=== PATIENT | female | born 1995 | race Caucasian/White ===

== ENCOUNTER 2016-09-03 09:48 | Outpatient (CLI) | payer MEDICAID ==
[~2016-09-03] VITALS: Ht 162.6 cm; Wt 63.0 kg
[2016-09-03 09:58] VITALS: Ht 162.6 cm; Wt 63.0 kg
[2016-09-03 10:09] VITALS: BP 116/70
[2016-09-03] MEDS ORDERED: ONDANSETRON 4 MG INJ IV PRN (11:00)
[2016-09-03] MEDS ORDERED: LACTATED RINGER'S 1,000 ML IV SCH (11:00)
[2016-09-03 11:27] LABS: ADD SCAN DIFF NO
[2016-09-03 11:30] LABS: ABNORMAL IP MESSAGE 1; BASOPHILS % 0.3 % (0.0-2.0); EOSINOPHILS % 0.1 % (0.0-7.0); HEMOGLOBIN 12.5 g/dl (12.0-16.0); RED CELL DISTRIBUTION WIDTH 13.2 % (11.5-14.5)
[2016-09-03 11:34] LABS: HEMATOCRIT 35.6 % (37.0-47.0); LYMPHOCYTES # 0.8 10^3/ul (0.8-2.9); LYMPHOCYTES % 6.3 % (18.0-55.0); MEAN CORPUSCULAR HEMOGLOBIN 31.5 pg (29.0-33.0); MEAN CORPUSCULAR HGB CONC 35.1 g/dl (32.0-37.0); MEAN CORPUSCULAR VOLUME 89.7 fl (72.0-104.0); MEAN PLATELET VOLUME 14.1 fl (7.4-10.4); MONOCYTE # 0.5 10^3/ul (0.3-0.9); MONOCYTES % 3.9 % (0.0-13.0); NEUTROPHIL # 11.8 10^3/ul (1.6-7.5); NEUTROPHILS % 88.6 % (30.0-74.0); PLATELET COUNT 120 10^3/UL (140-415); RED BLOOD COUNT 3.97 10^6/ul (4.20-5.40); WHITE BLOOD COUNT 13.3 10^3/ul (4.8-10.8)
[2016-09-03 11:48] LABS: ALBUMIN 4.3 g/dl (3.3-4.9); ALBUMIN/GLOBULIN RATIO 1.53; BILIRUBIN,INDIRECT 0.3 mg/dl (0-1.1); BILIRUBIN,TOTAL 0.3 mg/dl (0.2-1.3); CALCIUM 9.2 mg/dl (8.4-10.2); CREATININE 0.45 mg/dl (0.44-1.00); POTASSIUM 4.2 mmol/L (3.5-5.1); TOTAL PROTEIN 7.1 g/dl (6.1-8.1)
[2016-09-03 12:13] LABS: ADD UMIC YES; URINE BILIRUBIN (Dip) NEGATIVE (NEGATIVE); URINE BLOOD (Dip) NEGATIVE (NEGATIVE); URINE COLOR LT. YELLOW (YELLOW); URINE GLUCOSE (Dip) NEGATIVE (NEGATIVE); URINE KETONES (Dip) NEGATIVE (NEGATIVE); URINE LEUKOCYTE ESTERASE (Dip) 1+ (NEGATIVE); URINE NITRITE (Dip) NEGATIVE (NEGATIVE); URINE TOTAL PROTEIN (Dip) NEGATIVE (NEGATIVE); URINE UROBILINOGEN (Dip) 0.2 E.U./dL (0.1-1.0)
--- NOTE | 2016-09-03 12:27 | QN ---
Documentation Comment 20 years old 21 weeks and 3 days with EDC January 11, 2017, presented herself to triage unit with chief complaint of nausea and 3 occasions of vomiting as of yesterday, on appearance she looks slightly pale and dehydrated requires hydration with antinausea medication, her CMP is within normal as well as her CBC, urine results for ketones and acetone not available . She may be discharged home after hydration and relief from nausea, instruction for diet and hydration given, advised follow-up at the clinic in 3-4 day Laboratory Tests Test 09/03/16 11:08 White Blood Count 13.310^3/ul Red Blood Count 3.9710^6/ul Hemoglobin 12.5g/dl Hematocrit 35.6% Mean Corpuscular Volume 89.7fl Mean Corpuscular Hemoglobin 31.5pg Mean Corpuscular Hemoglobin Concent 35.1g/dl Red Cell Distribution Width 13.2% Platelet Count 04557^3/UL Mean Platelet Volume 14.1fl Neutrophils % 88.6% Lymphocytes % 6.3% Monocytes % 3.9% Eosinophils % 0.1% Basophils % 0.3% Nucleated Red Blood Cells % 0.0/100WBC Neutrophils # 11.810^3/ul Lymphocytes # 0.810^3/ul Monocytes # 0.510^3/ul Eosinophils # 0.010^3/ul Basophils # 0.010^3/ul Nucleated Red Blood Cells # 0.010^3/ul Sodium Level 140mmol/L Potassium Level 4.2mmol/L Chloride Level 107mmol/L Carbon Dioxide Level 23mmol/L Anion Gap 14 Blood Urea Nitrogen 8mg/dl Creatinine 0.45mg/dl Glucose Level 77mg/dl Calcium Level 9.2mg/dl Total Bilirubin 0.3mg/dl Direct Bilirubin 0.00mg/dl Indirect Bilirubin 0.3mg/dl Aspartate Amino Transf (AST/SGOT) 22IU/L Alanine Aminotransferase (ALT/SGPT) 31IU/L Alkaline Phosphatase 62IU/L Total Protein 7.1g/dl Albumin 4.3g/dl Globulin 2.80g/dl Albumin/Globulin Ratio 1.53 Current Medications Medications (Trade) Dose Ordered Sig/Bryan Route PRN Reason Start Time Stop Time Status Last Admin Dose Admin Ondansetron HCl 4 mg 4 mg Q6H PRN IV NAUSEA AND/OR VOMITING 09/03/16 11:00 09/03/16 11:26 Lactated Ringer's (Lr) 1,000 ml @ 200 mls/hr Q5H IV 09/03/16 11:00 09/03/16 11:11 ZORAIDA PARRA MD Sep 03, 2016 12:18
[2016-09-03 12:32] LABS: MUCUS,URINE FEW; SQUAMOUS EPITHELIAL CELL,UR FEW; URINE RBCS NONE SEEN /HPF (0)
--- NOTE | 2016-09-03 15:14 | TRIAGE ---
OB Triage Datetime Report Generated by CPN: 09/03/2016 15:13 Datetime: 09/03/2016 14:31 Labor Evaluation Frequency: X3 Duration (sec)2399: 30-40 Quality: Mild Pattern: Normal: <= 5 Contractions in 10 Minutes Resting Tone [place]: Relaxed Pain Assessment Pain Scale: 2 Pain Presence: Intermittent Pain Type: Ache Pain Location: Abdomen Pain Goal: 0 Datetime: 09/03/2016 13:31 Labor Evaluation Frequency: X2 Monitor Mode: External Duration (sec)2399: 30-40 Quality: Mild Pattern: Normal: <= 5 Contractions in 10 Minutes Resting Tone [place]: Relaxed Datetime: 09/03/2016 13:01 Labor Evaluation Frequency: X2 Monitor Mode: External Duration (sec)2399: 60 Quality: Mild Pattern: Normal: <= 5 Contractions in 10 Minutes Resting Tone [place]: Relaxed Pain Assessment Pain Scale: 4 Pain Presence: Constant Pain Type: Ache Pain Location: Abdomen Pain Goal: 0 Pain Relief Measures: Comfort Measures Datetime: 09/03/2016 12:31 Labor Evaluation Frequency: X2 Monitor Mode: External Duration (sec)2399: 30-60 Quality: Mild Pattern: Normal: <= 5 Contractions in 10 Minutes Resting Tone [place]: Relaxed Pain Assessment Pain Scale: 4 Pain Presence: Constant Pain Type: Ache Pain Location: Abdomen Pain Goal: 0 Pain Relief Measures: Comfort Measures Datetime: 09/03/2016 12:01 Labor Evaluation Frequency: X3 Monitor Mode: External Duration (sec)2399: 30-40 Quality: Mild Pattern: Normal: <= 5 Contractions in 10 Minutes Resting Tone [place]: Relaxed Pain Assessment Pain Scale: 5 Pain Presence: Constant Pain Type: Ache Pain Location: Back Pain Goal: 0 Pain Relief Measures: Comfort Measures Datetime: 09/03/2016 11:30 Labor Evaluation Frequency: 2-10 Monitor Mode: External Duration (sec)2399: 30-60 Quality: Mild Pattern: Normal: <= 5 Contractions in 10 Minutes Resting Tone [place]: Relaxed Pain Assessment Pain Scale: 7 Pain Presence: Constant Pain Type: Ache Pain Location: Abdomen Pain Goal: 0 Pain Relief Measures: Comfort Measures Vaginal Exam Membrane Status: Intact Datetime: 09/03/2016 11:00 Labor Evaluation Frequency: X3 Monitor Mode: External Duration (sec)2399: 40 Quality: Mild Pattern: Normal: <= 5 Contractions in 10 Minutes Resting Tone [place]: Relaxed Pain Assessment Pain Scale: 9 Pain Presence: Constant Pain Type: Ache Pain Location: Abdomen Pain Goal: 2 Vaginal Exam Membrane Status: Intact Datetime: 09/03/2016 10:15 EGA: 21.3 Datetime: 09/03/2016 10:05 Time of Arrival: 09/03/2016 09:45 Arrived By: Wheelchair Arrived From: Home Chief Complaint: NAUSEA/VOMITTING/DIARRHEA Movement: Present Rupture of Membranes: Denies Vaginal Bleeding: None Vaginal Discharge: Denies Recent Sexual Intercouse: Denies Abdominal Trauma: Not Applicable Patient Complaints: Nausea; Vomiting Time Provider Notified: 09/03/2016 10:53 Provider Notified: DR. PARRA Initial Plan: TOCO. UA Datetime: 09/03/2016 10:04 Monitor Mode: External Heart Rate FHR Baseline Rate: 148 Monitor Mode: Auscultation/Fetoscope Pain Assessment Pain Scale: 9 Pain Presence: Constant Pain Type: Ache Pain Location: Abdomen Pain Goal: 0 Vaginal Exam Membrane Status: Intact Datetime: 09/03/2016 10:00 Assessment Type: Triage Maternal Assessment Level of Consciousness: Fully Conscious DTR's/Clonus: DTRs 2+; No Clonus Headache: Denies Blurred Vision: No Respiratory Effort: Unlabored; Regular Rhythm; Equal Expansion Breath Sounds, Left: Clear and Equal Breath Sounds, Right: Clear and Equal Nausea/Vomiting: Denies RUQ Epigastric Pain: Denies Lower Extremities Edema: None Degree: None Upper Extremities Edema: None Degree: None Facial Edema: None Fall Risk Assessment History of Falling: (0) No Secondary Diagnosis: (0) No Ambulatory Aid: (0) Bedrest/Nurse Assist IV Therapy: (0) No Gait: (0) Normal/Bedrest/Immobile Mental Status: (0) Oriented to Own Ability Fall Score: 0 Fall Risk Score Definition: No Risk: No action required
== END 2016-09-03 15:05 | disposition home or self-care (01) ==
LOC: OBT 09:48 → L-D 09:49 → OBT 15:05
PROVIDERS: ATTEND Obstetrics & Gynecology
DX: O21.2 Late vomiting of pregnancy (principal); E86.0 Dehydration; Z3A.21 21 weeks gestation of pregnancy
CPT/HCPCS: 80053; 81001; 85025; J2405; J7120

== ENCOUNTER 2016-12-26 01:15 | Outpatient (CLI) | payer MEDICAID ==
[~2016-12-26] VITALS: Ht 162.6 cm; Wt 70.1 kg
[2016-12-26 03:20] VITALS: Ht 162.6 cm; Wt 70.1 kg
[2016-12-26 03:21] VITALS: BP 120/85; PULSE 78; RESP 18
--- NOTE | 2016-12-26 03:21 | RADRPT ---
PROCEDURE: Limited OB ultrasound CLINICAL INDICATION: Leaking. Evaluate fluid volume. TECHNIQUE: Sonographic evaluation to assess the amniotic fluid volume was performed. Transabdomin al imaging of the gravid uterus was performed. COMPARISON: OB ultrasound dated 12/18/2016 FINDINGS: Single live intrauterine with cardiac activity is identified. The heart rate i s 129 beats per minute. The fetus in a cephalic presentation. The placenta is posterior, grade 1. T he amniotic -fluid volume equals approximately 10.5 cm, within normal limits. Previously, the amnio tic fluid volume measured 12.1 cm. IMPRESSION: 1. Amniotic fluid volume equals 10.5 cm. RPTAT: HCNS Physician Rosendo Date Time Electronically viewed and signed by Physician Rosendo on 12/26/2016 03:21 CS/
--- NOTE | 2016-12-26 04:00 | TRIAGE ---
OB Triage Datetime Report Generated by CPN: 12/26/2016 03:59 Datetime: 12/26/2016 03:30 Stage of : OB Triage Datetime: 12/26/2016 03:28 Stage of : OB Triage Labor Evaluation Frequency: 3-7 Monitor Mode: External Duration (sec)2399: 60-80 Quality: Mild Pattern: Normal: <= 5 Contractions in 10 Minutes Resting Tone [place]: Relaxed Contraction Comments: toco removed Heart Rate FHR Baseline Rate: 135 Monitor Mode: External US Variability: Moderate 6-25 bpm Accelerations: 15X15 Decelerations: None Comments: us removed Pain Assessment Pain Scale: 0 Pain Presence: None/Denies Pain Type: N/A Pain Goal: 3 Datetime: 12/26/2016 02:30 Stage of : OB Triage Labor Evaluation Frequency: 6-7 Monitor Mode: External Duration (sec)2399: 60-80 Quality: Mild Pattern: Normal: <= 5 Contractions in 10 Minutes Resting Tone [place]: Relaxed Contraction Comments: PT DENIES FEELING UC'S Heart Rate FHR Baseline Rate: 135 Monitor Mode: External US Variability: Moderate 6-25 bpm Accelerations: 15X15 Decelerations: None Pain Assessment Pain Scale: 0 Pain Presence: None/Denies Pain Type: N/A Pain Goal: 3 Pain Assessment Comments: PT ASLEEP Datetime: 12/26/2016 01:35 Stage of : OB Triage Datetime: 12/26/2016 01:34 Stage of : OB Triage Pain Assessment Pain Scale: 0 Pain Presence: None/Denies Pain Type: N/A Pain Goal: 3 Vaginal Exam Dilatation (cms): 1.0 Effacement (%): 70 Station: -2 Exam By: comfort felipe Datetime: 12/26/2016 01:31 Time of Arrival: 12/26/2016 01:05 EGA: 37.5 Arrived By: Wheelchair Arrived From: Home Chief Complaint: Leaking since a.m. one time Movement: Present Contractions: Denies/Absent Rupture of Membranes: Unsure Vaginal Bleeding: None Vaginal Discharge: Denies Recent Sexual Intercouse: Denies Abdominal Trauma: Not Applicable Patient Complaints: Other Time Provider Notified: 12/26/2016 01:39 Provider Notified: HADADIAN Initial Plan: EFM, INGRID Datetime: 12/26/2016 01:30 Stage of : OB Triage Assessment Type: Triage Maternal Assessment Level of Consciousness: Fully Conscious DTR's/Clonus: DTRs 2+; No Clonus Headache: Denies Blurred Vision: No Respiratory Effort: Unlabored; Regular Rhythm; Equal Expansion Breath Sounds, Left: Clear and Equal Breath Sounds, Right: Clear and Equal Nausea/Vomiting: Denies RUQ Epigastric Pain: Denies Lower Extremities Edema: None Degree: None Upper Extremities Edema: None Degree: None Facial Edema: None Fall Risk Assessment History of Falling: (0) No Secondary Diagnosis: (0) No Ambulatory Aid: (0) Bedrest/Nurse Assist IV Therapy: (0) No Gait: (0) Normal/Bedrest/Immobile Mental Status: (0) Oriented to Own Ability Fall Score: 0 Fall Risk Score Definition: No Risk: No action required Contraction Comments: TOCO APPLIED Comments: US APPLIED Datetime: 09/03/2016 10:15 EGA: 21.3 Datetime: 09/03/2016 10:00 Fall Score: 0 Fall Risk Score Definition: No Risk: No action required
--- NOTE | 2016-12-26 06:15 | PN ---
Triage Information Date/Time Reason for visit: SROM Weeks of Gestation 37 6/7 /Para 1 Diabetes: none Hypertention: none Additional information 21 Year-old G1 with SIUP at 37 6/7 wks presents with a chief complaint of possible LOF. She has been receiving her care with Dr. Ragsdale. She states good movement. She denies nausea, vomiting, shortness of breath, chest pain, and abdominal pain between contractions, headache, visual changes, vaginal bleeding. Objective Vital Signs Date Time Temp Pulse Resp B/P Pulse Ox O2 Delivery O2 Flow Rate FiO2 12/26/16 03:21 97.6 78 18 120/85 Room Air Heart Rate: 130's Contractions: None Exam General: Patient appears well, alert and oriented, NAD, appropriate mood and affect ABD: gravid, soft, non-tender. Back: No CVA tenderness (B/L) LE: No clubbing, cyanosis, edema, thigh or calf tenderness bilaterally FHT: 130 bpm , moderate variability with acceleration, no deceleration-category I Contractions: None Speculum exam: No vaginal bleeding or LOF seen Assessment/Plan 21 Year-old G1 with SIUP at 37 6/7 wks c/o possible LOF. Her exam was unremarkable, us performed nml INGRID seen . - FHR: No sign of metabolic acidosis- Category I - Continuous EFM, toco - Contractions: None. - INGRID: 10.7 - Symptoms and sign of labor, preeclampsia, kick count discussed with patient, she voiced understanding. All of her questions answered. - Patient was discharged home in stable condition with the appropriate discharge instructions provided. I would like patient to have close follow-up with her primary physician or outpatient clinic in 1-2 days or return to the ER for worsening symptoms or any other urgent concerns. JOSUE NIELSEN Dec 26, 2016 06:15
== END 2016-12-26 03:48 | disposition home or self-care (01) ==
LOC: OBT 01:15 → L-D 01:30 → OBT 03:48
PROVIDERS: ATTEND Obstetrics & Gynecology
DX: O26.893 Other specified pregnancy related conditions, third trimester (principal); Z3A.37 37 weeks gestation of pregnancy
CPT/HCPCS: 76815; Z7500; G0463

== ENCOUNTER 2017-01-01 01:18 | Inpatient (IN) | payer OTHER ==
[~2017-01-01] VITALS: Ht 162.6 cm; Wt 71.7 kg
[2017-01-01 01:40] VITALS: BP 141/89; PULSE 89; RESP 18; Ht 162.6 cm; Wt 71.7 kg
[2017-01-01] MEDS ORDERED: LACTATED RINGER'S 1,000 ML IV SCH (01:51)
[2017-01-01] MEDS ORDERED: OXYTOCIN 30 UNITS/LR 500 ML IV PRN ×2 (02:00→04:00)
[2017-01-01] MEDS ORDERED: MISOPROSTOL 200 MCG TAB PR PRN ×2 (02:00→04:00)
[2017-01-01] MEDS ORDERED: OXYTOCIN 30 UNITS/LR 500 ML IV SCH ×2 (02:00)
[2017-01-01] MEDS ORDERED: BUTORPHANOL 2 MG INJ IV PRN (02:00)
[2017-01-01] MEDS ORDERED: LIDOCAINE 1% (MPF) 30 ML INJ INJ PRN (02:00)
[2017-01-01] MEDS ORDERED: CARBOPROST 250 MCG INJ IM PRN ×2 (02:00→04:00)
[2017-01-01] MEDS ORDERED: METHYLERGONOVINE 0.2 MG INJ IM PRN ×2 (02:00→04:00)
[2017-01-01] MEDS ORDERED: BUTORPHANOL 2 MG INJ ONE (02:16)
--- NOTE | 2017-01-01 02:21 | TRIAGE ---
OB Triage Datetime Report Generated by CPN: 01/01/2017 02:21 Datetime: 01/01/2017 02:07 Vaginal Exam Dilatation (cms): 6.0 Effacement (%): 80 Station: -2 Exam By: unique BLAKE Membrane Status: Ruptured Membranes Rupture Method: Spontaneous Amniotic Fluid Color: Clear Amniotic Fluid Amount: Small Amniotic Fluid Odor: Normal Datetime: 01/01/2017 01:43 Time of Arrival: 01/01/2017 01:17 EGA: 38.4 Arrived By: Wheelchair Arrived From: Home Chief Complaint: PT C/O ABDOMEN PAIN Movement: Present Contractions: Regular Time Contractions Began: 01/01/2017 01:00 Rupture of Membranes: Denies Vaginal Bleeding: None Vaginal Discharge: Denies Recent Sexual Intercouse: Denies Abdominal Trauma: Not Applicable Patient Complaints: Contractions Time Provider Notified: 01/01/2017 01:47 Provider Notified: DR ENCISO Initial Plan: PHYSICAL EXAM, TOCO AND EFM, NOTIFY MD Datetime: 01/01/2017 01:25 Stage of : Labor Vaginal Exam Dilatation (cms): 4.0 Effacement (%): 90 Station: -2 Exam By: BOLTON,ALFONSO Datetime: 12/26/2016 01:31 EGA: 37.5 Datetime: 12/26/2016 01:30 Fall Risk Assessment Fall Score: 0 Fall Risk Score Definition: No Risk: No action required Datetime: 09/03/2016 10:15 EGA: 21.3 Datetime: 09/03/2016 10:00 Fall Risk Assessment Fall Score: 0 Fall Risk Score Definition: No Risk: No action required
[2017-01-01] MEDS ORDERED: AMPICILLIN 2 GM/NS (PMX) 100 ML ONE (02:22)
[2017-01-01 02:24] LABS: ABNORMAL IP MESSAGE 1; BASOPHIL # 0.1 10^3/ul (0.0-0.1); BASOPHILS % 0.4 % (0.0-2.0); EOSINOPHILS # 0.2 10^3/ul (0.0-0.5); EOSINOPHILS % 1.3 % (0.0-7.0); HEMATOCRIT 35.6 % (37.0-47.0); HEMOGLOBIN 11.4 g/dl (12.0-16.0); LYMPHOCYTES % 21.1 % (18.0-55.0); MEAN CORPUSCULAR HEMOGLOBIN 26.6 pg (29.0-33.0); MEAN CORPUSCULAR VOLUME 83.2 fl (72.0-104.0); MEAN PLATELET VOLUME 14.3 fl (7.4-10.4); MONOCYTE # 0.9 10^3/ul (0.3-0.9); MONOCYTES % 6.1 % (0.0-13.0); NEUTROPHIL # 9.9 10^3/ul (1.6-7.5); NEUTROPHILS % 70.5 % (30.0-74.0); PLATELET COUNT 160 10^3/UL (140-415); RED BLOOD COUNT 4.28 10^6/ul (4.20-5.40); RED CELL DISTRIBUTION WIDTH 13.2 % (11.5-14.5); WHITE BLOOD COUNT 14.1 10^3/ul (4.8-10.8)
[2017-01-01] MEDS ORDERED: AMPICILLIN 2 GM/NS (PMX) 100 ML IV STA (02:30)
[2017-01-01 02:46] LABS: INR 0.83; PROTIME 11.4 Sec (12.2-14.2); PT RATIO 0.9
[2017-01-01 02:47] LABS: PARTIAL THROMBOPLASTIN TIME 28.3 Sec (25.0-35.0)
[2017-01-01 02:52] LABS: POSITIVE DIFF @See below
[2017-01-01 03:07] LABS: ALBUMIN 3.7 g/dl (3.3-4.9); ALBUMIN/GLOBULIN RATIO 1.08; BILIRUBIN,INDIRECT 0.2 mg/dl (0-1.1); BILIRUBIN,TOTAL 0.2 mg/dl (0.2-1.3); CREATININE 0.59 mg/dl (0.44-1.00); POTASSIUM 4.2 mmol/L (3.5-5.1); TOTAL PROTEIN 7.1 g/dl (6.1-8.1); URIC ACID 4.1 mg/dl (3.1-7.9)
--- NOTE | 2017-01-01 03:57 | HP ---
Date/Time of Note Date/Time of Note DATE: 01/01/17 TIME: 03:56 OB - History Hx of Present Chief Complaint: contractions : 1 Para: 0 Care: Good Care Obstetrical Complications: None Medical Complications: None Past Family/Social History * Past Medical, Surgical, Family and Obstetric Histories reviewed from chart. GBS Status: Positive OB Admission Exam Vital Signs Vital Signs Vital Signs Date Time Temp Pulse Resp B/P Pulse Ox O2 Delivery O2 Flow Rate FiO2 01/01/17 01:40 98.5 89 18 141/89 Room Air Physical Exam HEENT: WNL Heart: Rhythm Normal Lungs: Clear Abdomen: WNL Extremities: Normal Cervical Dilatation: 4cm Accelerations: Accelerations Present Decelerations: No Decelerations Varibility: Moderate Contractions on Admission: < 5 Minutes Apart Last 72 hours Lab Results CBC & BMP 01/01/17 02:03 Liver Function Test 01/01/17 02:03 Alanine Aminotransferase (ALT/SGPT) 24 Albumin 3.7 Alkaline Phosphatase 256 H Aspartate Amino Transf (AST/SGOT) 19 Direct Bilirubin 0.00 Total Protein 7.1 OB Assessment/Plan Reason for admission: active labor, group B positive strep Plan: Expectant Management LILLIAN ENCISO Jan 01, 2017 03:57
[2017-01-01] MEDS ORDERED: LACTATED RINGER'S 1,000 ML IV* SCH (03:59)
--- NOTE | 2017-01-01 03:59 | LDN ---
Date/Time of Note Date/Time of Note DATE: 01/01/17 TIME: 03:58 Delivery Summary Weeks of Gestation 38w 4d Placenta Delivered: Spontaneously Meconium: none Episiotomy: No Perineal laceration: 0 Anesthesia type: None Estimated blood loss: 200 Sponge & Needle done & correct: Yes All needle counts correct: Yes Any foreign bodies felt in the: No Problems: Infant Delivery Information Sex Infant Sex: male Apgars 1 Minute: 9 5 Minute: 9 Suctioning Nose & mouth suctioned at thuy: Yes Umbilical Cord Umbilical cord with: 3 Vessels Cord presentations: no nuchal cord Cord Blood was obtained: Yes Mother & Baby Disposition Disposition Mom & Baby to Maternity; Good: Yes LILLIAN ENCISO Jan 01, 2017 03:59
[2017-01-01] MEDS ORDERED: BENZOCAINE 20% 56 ML SPRAY TOP PRN (04:00)
[2017-01-01] MEDS ORDERED: DIBUCAINE 1% 30 GM OINT PR PRN (04:00)
[2017-01-01] MEDS ORDERED: HYDROCODONE/APAP (5/325) TAB PO PRN ×2 (04:00)
[2017-01-01] MEDS ORDERED: WITCH HAZEL/GLYCERIN PAD PR PRN (04:00)
[2017-01-01] MEDS ORDERED: LACTATED RINGER'S 1,000 ML IV PRN (04:00)
[2017-01-01] MEDS ORDERED: LANOLIN 7 GM TUBE TOP PRN (04:00)
[2017-01-01] MEDS ORDERED: IBUPROFEN 600 MG TAB ONE (04:39)
[2017-01-01] MEDS: IBUPROFEN 600 MG TAB PO SCH ×3 (04:56→17:44)
[2017-01-01] MEDS: OXYTOCIN 30 UNITS/LR 500 ML IV SCH ×2 (06:10→11:10)
[2017-01-01] MEDS: AMPICILLIN 1 GM/NS (PMX) 50 ML IV SCH ×3 (06:30→14:30)
[2017-01-01 06:45] VITALS: BP 116/65; PULSE 79; RESP 18
[2017-01-01 09:00] VITALS: BP 110/69; RESP 17
[2017-01-01 12:00] VITALS: BP 106/61; PULSE 84; RESP 17
[2017-01-01 15:53] LABS: ADD UMIC YES; UR ASCORBIC ACID NEGATIVE (NEGATIVE); UR BILIRUBIN (Dip) NEGATIVE (NEGATIVE); UR BLOOD (Dip) 3+ mg/dL (NEGATIVE); UR CLARITY CLOUDY (CLEAR); UR COLOR RED (YELLOW); UR GLUCOSE (Dip) 1+ mg/dL (NEGATIVE); UR KETONES (Dip) NEGATIVE (NEGATIVE); UR LEUKOCYTE ESTERASE (Dip) 1+ Leu/ul (NEGATIVE); UR NITRITE (Dip) NEGATIVE (NEGATIVE); UR RBC > 182 /HPF (0-5); UR SPECIFIC GRAVITY (Dip) 1.014 (1.003-1.030); UR SQUAMOUS EPITHELIAL CELL FEW /HPF (FEW); UR TOTAL PROTEIN (Dip) 1+ mg/dl (NEGATIVE); UR UROBILINOGEN (Dip) NEGATIVE (NEGATIVE)
[2017-01-01 16:00] VITALS: BP 110/68; PULSE 90; RESP 16
[2017-01-01 20:00] VITALS: BP 112/73; PULSE 71; RESP 18
[2017-01-02] VITALS: BP 93/61; PULSE 77; RESP 18
[2017-01-02] MEDS: IBUPROFEN 600 MG TAB PO SCH ×4 (00:05→18:01)
[2017-01-02] MEDS: AMPICILLIN 1 GM/NS (PMX) 50 ML IV SCH ×6 (02:30→22:30)
[2017-01-02 04:00] VITALS: BP 102/76; PULSE 78; RESP 18
[2017-01-02 08:10] VITALS: BP 100/71; PULSE 84; RESP 18
[2017-01-02] MEDS ORDERED: INFLUENZA VIRUS VACCINE 0.5 ML SYG IM* ONE (10:00)
--- NOTE | 2017-01-02 10:51 | QN ---
Documentation Comment Post normal vaginal delivery day 1 Afebrile VSS Abdomen soft Uterus firm Lochia normal Extremity normal ZORAIDA PARRA MD Jan 02, 2017 10:51
[2017-01-02 13:43] LABS: RUBELLA ANTIBODY - IGG 1.04 index
[2017-01-02 14:56] LABS: ABNORMAL IP MESSAGE 1; BASOPHILS % 0.4 % (0.0-2.0); EOSINOPHILS # 0.2 10^3/ul (0.0-0.5); EOSINOPHILS % 1.4 % (0.0-7.0); HEMATOCRIT 29.3 % (37.0-47.0); HEMOGLOBIN 9.5 g/dl (12.0-16.0); LYMPHOCYTES # 1.8 10^3/ul (0.8-2.9); MEAN CORPUSCULAR HEMOGLOBIN 27.2 pg (29.0-33.0); MEAN CORPUSCULAR HGB CONC 32.4 g/dl (32.0-37.0); MEAN PLATELET VOLUME 13.4 fl (7.4-10.4); MONOCYTE # 0.6 10^3/ul (0.3-0.9); MONOCYTES % 5.1 % (0.0-13.0); NEUTROPHIL # 8.4 10^3/ul (1.6-7.5); NEUTROPHILS % 76.3 % (30.0-74.0); PLATELET COUNT 133 10^3/UL (140-415); RED BLOOD COUNT 3.49 10^6/ul (4.20-5.40); RED CELL DISTRIBUTION WIDTH 13.5 % (11.5-14.5)
[2017-01-02 14:58] LABS: POSITIVE DIFF @See below
[2017-01-02 16:28] VITALS: BP 109/66; PULSE 64; RESP 16
[2017-01-02 20:00] VITALS: BP 128/81; PULSE 71; RESP 18
[2017-01-03] MEDS: AMPICILLIN 1 GM/NS (PMX) 50 ML IV SCH ×3 (02:30→10:30)
[2017-01-03 04:00] VITALS: BP 112/73; PULSE 75; RESP 18
[2017-01-03] MEDS: IBUPROFEN 600 MG TAB PO SCH ×3 (05:34→11:34)
[2017-01-03 08:15] VITALS: BP 119/79; PULSE 94; RESP 19
[2017-01-03] MEDS ORDERED: DIPHTH/TET/ACEL PERTUSS (ADULT) 0.5 ML VIAL IM* ONE (09:00)
[2017-01-03] MEDS ORDERED: VARICELLA VACCINE LIVE/PF 1,350 UNIT/0.5 ML ML SC* ONE (09:00)
[2017-01-03] MEDS ORDERED: MEASLES,MUMPS,RUBELLA VACCINE INJ SC* ONE (09:00)
--- NOTE | 2017-01-03 09:43 | PD.PPDC ---
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 Instruction Condition Patient Condition: Good Diet Diet: Resume Regular Diet Activity/Restrictions Activity: Normal Activity May Shower Restrictions: No Exercising No Lifting No Driving No Sexual Activity Nothing in the Vagina No Oto No Tampons, douche Follow-up Follow-up with Physician: 2, Week/Weeks Provider Information: instructions given recommended to make appointment to be seen at the clinic in 2 weeks Return to clinic for [employer] DES[employer]ER Instructions: Fever greater than 101 Chills Worsening abdominal pain Excessive Vaginal Bleeding More than 2 pads per hour Unable to tolerate diet OB Instructions: Breast Tenderness Depression Blurried Vision Headache ZORAIDA PARRA MD Jan 03, 2017 09:43
--- NOTE | 2017-01-03 09:45 | DS ---
Date/Time of Note Date/Time of Note DATE: 01/03/17 TIME: 09:43 Discharge Summary Admission/Discharge Info Admit Date/Time Jan 01, 2017 at 01:47 Discharge Date/Time January 03, 2017 at 10 AM Discharge Diagnosis Day 2 post normal vaginal delivery Patient Condition: Good Procedures Normal spontaneous vaginal delivery Hx of Present Illness Term in labor Hospital Course Satisfactory uneventful Home Meds No Active Prescriptions or Reported Meds Follow-up Plan instruction given recommended to make appointment to be seen at the clinic in 2 weeks Primary Care Provider Not On Staff Doctor Time spent on discharge: < 30 minutes Pending Labs Laboratory Tests Test 01/02/17 14:45 White Blood Count 11.010^3/ul (4.8-10.8) Red Blood Count 3.4910^6/ul (4.20-5.40) Hemoglobin 9.5g/dl (12.0-16.0) Hematocrit 29.3% (37.0-47.0) Mean Corpuscular Volume 84.0fl (72.0-104.0) Mean Corpuscular Hemoglobin 27.2pg (29.0-33.0) Mean Corpuscular Hemoglobin Concent 32.4g/dl (32.0-37.0) Red Cell Distribution Width 13.5% (11.5-14.5) Platelet Count 66631^3/UL (140-415) Mean Platelet Volume 13.4fl (7.4-10.4) Neutrophils % 76.3% (30.0-74.0) Lymphocytes % 16.0% (18.0-55.0) Monocytes % 5.1% (0.0-13.0) Eosinophils % 1.4% (0.0-7.0) Basophils % 0.4% (0.0-2.0) Nucleated Red Blood Cells % 0.0/100WBC (0.0-0.0) Neutrophils # 8.410^3/ul (1.6-7.5) Lymphocytes # 1.810^3/ul (0.8-2.9) Monocytes # 0.610^3/ul (0.3-0.9) Eosinophils # 0.210^3/ul (0.0-0.5) Basophils # 0.010^3/ul (0.0-0.1) Nucleated Red Blood Cells # 0.010^3/ul (0.0-0.0) ZORAIDA PARRA MD Jan 03, 2017 09:45
== END 2017-01-03 13:05 | disposition home or self-care (01) | DRG 775 ==
LOC: OBT 01:18 → L-D 01:18 → OBT 01:47 → PP1 06:12
PROVIDERS: ADMIT Obstetrics & Gynecology; ATTEND Obstetrics & Gynecology
PROC: 10E0XZZ Delivery of Products of Conception, External Approach (ICD-10-PCS; principal; 2017-01-01)
PROC: 3E0P3VZ Introduction of Hormone into Female Reproductive, Percutaneous Approach (ICD-10-PCS; 2017-01-01)
DX: O80 Encounter for full-term uncomplicated delivery (principal); Z37.0 Single live birth; Z3A.38 38 weeks gestation of pregnancy
CPT/HCPCS: 36415; 80053; 81001; 84560; 85025; 85610; 85730; 86592; 86703; 86762; 86900; 86901; 87340; 90686; 90715; 90716; G0463; J0290; J0595; J2590; J7120

== ENCOUNTER 2018-02-09 19:15 | Emergency (ER) | END 2018-02-09 22:48 | disposition left against medical advice (07) ==